=== PATIENT | female | born 1960 | race Caucasian/White ===

== ENCOUNTER → 2016-09-14 | Outpatient (REF) | payer OTHER | LOC: M SFHCWAGY 08:52 | PROVIDERS: ATTEND Nurse Practitioner Women's Health | DX: Z12.4 Encounter for screening for malignant neoplasm of cervix (principal) ==

== ENCOUNTER → 2016-09-30 | Outpatient (CLI) | payer OTHER ==
--- NOTE | 2016-09-30 15:31 | REPMRS ---
Patient History The patient states she had a clinical breast exam in Patient is postmenopausal. No known family history of cancer. Taking unspecified hormones for 4 years. Digital Woman Screen Mammo: September 30, 2016 - Exam #: [id number] Bilateral CC and MLO view(s) were taken. Technologist: Cori Ibarra, Technologist Prior study comparison: July 27, 2015, digital woman screen mammo performed at [facility]. 2012, bilateral mammogram, performed at [facility]. FINDINGS: There are scattered fibroglandular densities. There has been no change in the appearance of the mammogram from the prior studies. There is a mild amount of scattered fibroglandular density which is fairly symmetric. There is no interval development of dominant mass, architectural distortion, or clustered microcalcification suggestive of malignancy. ASSESSMENT: BI-RADS/ACR category 1 mammogram. Negative. Recommendation Routine screening mammogram in 1 year (for women over age 40). This mammogram was interpreted with the aid of an FDA-approved computer-aided dectection system. Electronically Signed By: Siva Vasquez MD 09/30/16 0520
== END ==
LOC: M WHC 13:38
PROVIDERS: ATTEND Nurse Practitioner Women's Health
DX: Z12.31 Encounter for screening mammogram for malignant neoplasm of breast (principal)

== ENCOUNTER → 2017-10-12 | Outpatient (REF) | payer OTHER | LOC: M SFHCWAGY 14:38 | DX: Z12.4 Encounter for screening for malignant neoplasm of cervix (principal); R87.610 Atypical squamous cells of undetermined significance on cytologic smear of cervix (ASC-US) | CPT/HCPCS: G0123 ==

== ENCOUNTER → 2017-10-12 | Outpatient (CLI) | payer OTHER | LOC: M WHC 12:59 | DX: Z12.31 Encounter for screening mammogram for malignant neoplasm of breast (principal) | CPT/HCPCS: 77067 ==

== ENCOUNTER → 2018-10-12 | Outpatient (CLI) | payer OTHER ==
--- NOTE | 2018-10-12 15:03 | REPMRS ---
Patient History The patient states she had a clinical breast exam in 10/2018. Patient is postmenopausal. No known family history of cancer. Taking estrogen for 1 year. Took unspecified hormones for 4 years. 3D TOMOSYNTHESIS WAS PERFORMED. Digital Woman Screen Mammo: October 12, 2018 - Exam #: [id number] Bilateral CC and MLO view(s) were taken. Technologist: Nayeli Hernandez, Technologist Prior study comparison: October 12, 2017, digital woman screen mammo performed at [facility]. September 30, 2016, digital woman screen mammo performed at [facility]. FINDINGS: The breast tissue is heterogeneously dense. This may lower the sensitivity of mammography. There has been no change in the appearance of the mammogram from the prior studies. There is a moderate amount of residual fibroglandular tissue which is fairly symmetric. There is no interval development of dominant mass, areas of architectural distortion, or clustered microcalcification typical of malignancy. Assessment: BI-RADS/ACR category 1 mammogram. Negative Mammogram. Recommendation Routine screening mammogram in 1 year (for women over age 40). This mammogram was interpreted with the aid of an FDA-approved computer-aided dectection system. Electronically Signed By: Francisco Bolden MD 10/12/18 1030
== END ==
LOC: M WHC 14:18
PROVIDERS: ATTEND Nurse Practitioner Women's Health
DX: Z12.31 Encounter for screening mammogram for malignant neoplasm of breast (principal); Z78.0 Asymptomatic menopausal state; Z79.818 Long term (current) use of other agents affecting estrogen receptors and estrogen levels; Z79.890 Hormone replacement therapy

== ENCOUNTER → 2019-10-15 | Outpatient (CLI) | payer OTHER ==
--- NOTE | 2019-10-15 15:20 | REPMRS ---
Patient History The patient states she had a clinical breast exam in October 2019. No known family history of cancer. Taking estrogen for 1 year. Took unspecified hormones for 4 years. Digital Woman Screen Mammo: October 15, 2019 - Exam #: [id number] Bilateral CC and MLO view(s) were taken. Technologist: Yani Jolly, Technologist Prior study comparison: October 12, 2018, bilateral digital woman screen mammo performed at [facility]. October 12, 2017, digital woman screen mammo performed at [facility]. September 30, 2016, digital woman screen mammo performed at [facility]. FINDINGS: There are scattered fibroglandular densities. The Volpara volumetric breast density category is:B. There is a new grouping of microcalcifications in the upper outer quadrant of the right breast which merit further evaluation. There has been no other change in the appearance of the mammogram from the prior studies. There is a mild amount of scattered fibroglandular density which is fairly symmetric. There is no other interval development of dominant mass, architectural distortion, or grouped microcalcification suggestive of malignancy. 3-D tomosynthesis shows no additional findings. Assessment: BI-RADS/ACR category 0 mammogram, Incomplete: Need additional imaging evaluation and/or prior mammograms for comparison. Recommendation Special view mammogram of the right breast in 1 year. This patient's Lifetime Breast Cancer Risk is estimated at 7.9 %. This mammogram was interpreted with the aid of an FDA-approved computer-aided dectection system. Electronically Signed By: Siva Vasquez MD 10/15/19 5964
== END ==
LOC: M WHC 14:20
PROVIDERS: ATTEND Nurse Practitioner Women's Health
DX: Z12.31 Encounter for screening mammogram for malignant neoplasm of breast (principal)

== ENCOUNTER → 2019-10-15 | Outpatient (REF) | payer OTHER | LOC: M SFHCWAGY 17:42 | PROVIDERS: ATTEND Nurse Practitioner Women's Health | DX: Z12.4 Encounter for screening for malignant neoplasm of cervix (principal) ==

== ENCOUNTER → 2019-10-16 | Outpatient (CLI) | payer OTHER ==
--- NOTE | 2019-10-16 13:44 | REP ---
DIGITAL DIAGNOSTIC UNILATERAL RIGHT BREAST MAMMOGRAPHY WITH CAD: Four views. HISTORY: Screening mammography October 15, 2019 was BIRADS category 0 because of new microcalcifications. Comparison is also made with October 12, 2018 and October 12, 2017 prior mammography. MAMMOGRAPHIC FINDINGS: Magnified focal spot compression CC, true mediolateral, and MLO views are obtained. These confirm the presence of a grouping of polymorphic microcalcifications projecting posteriorly in the upper outer quadrant which is a new finding. There are eight to nine of these microcalcifications in the grouping. No soft tissue density is seen or spiculation. No other mammographic finding. IMPRESSION: BIRADS 4: BI-RADS/ACR category 4 mammogram. Suspicious Abnormality - biopsy should be considered. Suspicious new grouping of microcalcifications far posteriorly in the upper outer quadrant of the right breast. BIRADS category 4 suspicious findings. Stereotactic needle biopsy recommended. This mammogram was interpreted with the aid of an FDA-approved computer-aided detection system. The patient states she had a clinical breast exam in October 2019. The patient letter being requested is M4.
== END ==
LOC: M WHC 11:26
PROVIDERS: ATTEND Nurse Practitioner Women's Health
DX: R92.0 Mammographic microcalcification found on diagnostic imaging of breast (principal)

== ENCOUNTER → 2019-10-31 | Outpatient (CLI) | payer OTHER ==
--- NOTE | 2019-10-31 11:21 | REP ---
FOCUSED LEFT BREAST SONOGRAPHY: HISTORY: Palpable left breast mass 1 to 2-o'clock position, 1 cm from the nipple with hypoechoic area seen on ultrasound. Comparison mammography October 14 and October 16, 2019. FINDINGS: Sonography in the 1 to 2-o'clock position 1 cm from the nipple demonstrates an irregular hypoechoic area measuring 7 x 4 x 5 mm. It is best defined in the ante radial orientation. In the radial orientation there appear to be ductal structures radiating towards the nipple. No acoustic shadowing is seen. Long axis is parallel to the skin. It is rather hypoechoic and irregularly marginated. IMPRESSION: Suspicious 7 mm nodule in the left breast. BIRADS category 4. Sonographically guided needle biopsy recommended.
--- NOTE | 2019-10-31 12:13 | REP ---
DIGITAL DIAGNOSTIC UNILATERAL RIGHT BREAST MAMMOGRAPHY WITH CAD: Two views. HISTORY: Marker clip placement views. The patient is status post stereotactic needle biopsy for microcalcifications. Comparison mammography October 16, 2019. FINDINGS: Craniocaudad and mediolateral views of the right breast demonstrate the needle biopsy marker clip in good position adjacent to the location of the microcalcifications. Most of the microcalcifications have been removed. There are two or three remaining. IMPRESSION: Marker clip in good position.
--- NOTE | 2019-10-31 12:15 | REP ---
SPECIMEN RADIOGRAPHY RIGHT BREAST: HISTORY: Stereotactic needle biopsy right breast. Comparison mammography October 16, 2019. FINDINGS: Specimen radiography demonstrates microcalcifications from the target grouping in three of the removed specimens. IMPRESSION: Specimen radiography shows microcalcifications from the target grouping.
--- NOTE | 2019-10-31 12:44 | REP ---
RIGHT STEREOTACTIC BREAST BIOPSY: This procedure is performed by Viviana Yang [facility], under the personal supervision of Dr. Vasquez. All imaging was reviewed by Dr. Vasquez prior to dictation. The procedure along with its risks, benefits, and complications were discussed with the patient prior to the examination and an informed consent was obtained both verbally and written. Directly prior to the start of the procedure, a formal time-out was completed in the exam room. Using the lateral medial approach, the calcifications were localized using stereotactic mammographic guidance. Local infiltrative anesthesia was achieved using 3 mm of buffered lidocaine. A small skin richar was made and a 10-gauge Mammotome device was passed through the skin and to the area of interest. Pre-fire and post-fire imaging revealed the biopsy device to be on target. Six core biopsy specimens were obtained. These were placed in formalin and will be sent to the lab for further evaluation. Specimen radiographs demonstrate the presence of calcifications to be within the specimen. . A marker clip was placed at the biopsy site. The needle was then pulled back into the pre-fire position and imaging showed the clip to be in good placement. The needle ws removed and homeostasis was achieved. The patient tolerated the procedure well and had no immediate complications. She was discharged home with her post-care instructions.
[2019-10-31 13:58] VITALS: BP 150/90
== END ==
LOC: M WHC 09:52
PROVIDERS: ATTEND Surgery
DX: D05.11 Intraductal carcinoma in situ of right breast (principal)

== ENCOUNTER → 2019-11-13 | Outpatient (CLI) | payer OTHER ==
[~2019-11-13] MED LIST: ALLE12TA31 PO
[2019-11-13 14:09] VITALS: BP 132/82
--- NOTE | 2019-11-13 17:37 | REP ---
POST BIOPSY MAMMOGRAM, LEFT BREAST: Post biopsy mammogram left breast performed in the MLO and CC projections following ultrasound guided biopsy of a 7 mm nodule at the 1- to 2-o'clock position of the left breast. This is in the anterior aspect of the left breast. A metallic clip is seen at that location of the left breast. The nodule is not seen mammographically on the prior mammogram of 10/15/2019.
--- NOTE | 2019-11-13 17:38 | REP ---
ULTRASOUND GUIDANCE FOR LEFT BREAST BIOPSY: Ultrasound guidance was provided for Dr. Marino, who performed ultrasound guided biopsy of a hypoechoic nodule visualized at 1- to 2-o'clock position left breast. The nodule is seen on today's images.
--- NOTE | 2019-11-17 00:44 | ROOPDOC ---
[facility] Report Of Operation Report of Operation DATE OF PROCEDURE: 11/13/19 PREPROCEDURE DIAGNOSES: Left breast mass. POSTPROCEDURE DIAGNOSES: Left breast mass. PROCEDURE: Left breast ultrasound-guided biopsy with clip. SURGEON: Toño Jackson RIPSAWYER: ANESTHESIA: Local anesthetic was used. ESTIMATED BLOOD LOSS: Approximately 1 mL. COMPLICATIONS: No complications. REMARKS: Clip is seen on post biopsy mammogram in expected location DESCRIPTION OF PROCEDURE: Lidocaine 1% LOT [id number] Expiration 10/2022 Sodium Bicarbonate 8.4% LOT 06 313 EV Expiration 11/2020 Hydromark clip LOT [id number] Expiration 05/2022 SHAPE 3 Bx device: BARD [id number] x10 cm LOT [id number] Expiration 07/2022 Informed consent was obtained. The most common risk and possible complications including bleeding, hematoma, bruising, infection, injury to surrounding structures were explained to the patient and she expressed understanding. Patient was placed on the bed in the supine position. Appropriate time out was done stating patients name, date of , and the procedure to be performed. The left breast was prepped and draped in the usual fashion. The ultrasound was used to confirm the location of the lesion in the left breast at 1-2:00 1 centimeter from the nipple. Plain Lidocaine 1% and 8.4% sodium bicarbonate 10:1 mix was used to anesthetize the skin, the biopsy site and tissues along the anticipated biopsy tract. Small skin incision was made with blade number 11. BARD Marquee 14G cannula with introducer ([id number]) was inserted through the incision and advanced under the ultrasound guidance to position immediately adjacent to the lesion. Next, the introducer was removed and BARD Marquee 14G biopsy device was places in the cannula. Pre-biopsy imaging, and post-biopsy imaging were captured. Five good core biopsies were taken at various levels of the lesion. Specimen was placed in formaldehyde, labeled with appropriate biopsy site and patients name, and sent to pathology for evaluation. Next, the biopsy device was withdrawn and a clip introducer was inserted into the biopsy site via the cannula. The Hydromark clip was deployed under sonographic guidance. Post-clip placement image was captured. Manual pressure over the biopsy cavity and tract was held after the clip introducer was withdrawn. No bleeding was noted upon removal of the pressure. Post-biopsy mammogram of the left breast was obtained and showed clip in expected position. Postprocedural dressing was placed. Patient tolerated procedure well. Discharge instructions were discussed with the patient and she expressed understanding. TOÑO JACKSON DO Nov 17, 2019 00:44
== END ==
LOC: M WHCPRO 12:37
PROVIDERS: ATTEND Surgery
DX: N60.11 Diffuse cystic mastopathy of right breast (principal)

== ENCOUNTER → 2019-12-07 | Outpatient (CLI) | payer OTHER ==
[~2019-12-07] MED LIST changes: +LEVOTAB10 PO; +ULTR50TA8 PO
== END ==
LOC: M LABSMTC 08:03
PROVIDERS: ATTEND Anesthesiology
DX: Z11.59 Encounter for screening for other viral diseases (principal); Z03.89 Encounter for observation for other suspected diseases and conditions ruled out
CPT/HCPCS: C9803; U0003

== ENCOUNTER 2019-12-10 06:23 | Day surgery (SDC) | payer OTHER ==
[~2019-12-10] VITALS: Ht 165.1 cm; Wt 58.5 kg
[~2019-12-10 06:23] MED LIST changes: -ULTR50TA8 PO
[2019-12-10] MEDS ORDERED: LIDOCAINE 1% SDV 30ML VIAL As Ordered ONE (06:50)
[2019-12-10] MEDS ORDERED: BUPIVACAINE HCL 0.25% 30ML VIAL As Ordered ONE (06:50)
[2019-12-10] MEDS ORDERED: METHYLENE BLUE 0.5% (5MG/ML) 10 ML AMP (PROVAYBLUE) As Ordered ONE (06:50)
[2019-12-10] MEDS ORDERED: HEPARIN SOD (PORCINE) 5000UNITS/ML 1ML VIAL/SYRINGE SQ ONE (07:00)
[2019-12-10] MEDS ORDERED: NS 1,000 ML IV ONE (07:00)
[2019-12-10] MEDS ORDERED: ceFAZolin SOD 2 GM in IV 1 EA IV ONE (07:00)
[2019-12-10] MEDS ORDERED: ROCURONIUM BROMIDE 50 MG/5 ML VIAL As Ordered ONE (07:21)
[2019-12-10] MEDS ORDERED: dexameTHASONE 4 MG/ML 1ML VIAL (J1100 PER 1MG) As Ordered ONE (07:21)
[2019-12-10] MEDS ORDERED: LIDOCAINE 2% 100MG/5ML SDV (FOR ANES.) As Ordered ONE (07:21)
[2019-12-10] MEDS ORDERED: MIDAZOLAM INJ 2MG/2ML VIAL (J2250 PER 1MG) As Ordered ONE (07:22)
[2019-12-10] MEDS ORDERED: fentaNYL 250 MCG/5 ML INJECTION (J3010) As Ordered ONE (07:22)
[2019-12-10] MEDS ORDERED: LACRILUBE (AKWA TEARS) OPHTH OINT 3.5 GM As Ordered ONE (07:51)
[2019-12-10] MEDS ORDERED: ONDANSETRON 4MG/2ML VIAL As Ordered ONE (08:00)
[2019-12-10] MEDS ORDERED: ACETAMINOPHEN 1000MG 100ML IV BTL (OFIRMEV) (J0131 PER 10MG) As Ordered ONE (08:19)
[2019-12-10] MEDS ORDERED: KETOROLAC 60MG 2ML VIAL As Ordered ONE (08:19)
[2019-12-10] MEDS ORDERED: PHENYLephrine HCL 500 MCG/5 ML (100MCG/ML) SYRINGE (J2370) As Ordered ONE (08:23)
[2019-12-10] MEDS ORDERED: ULTR50TA8 PO (10:23)
[2019-12-10] MEDS ORDERED: MEPERIDINE INJ 25 MG/ML VIAL (J2175) IV PRN (10:30)
[2019-12-10] MEDS ORDERED: LR 1,000 ML IV SCH (10:30)
[2019-12-10] MEDS ORDERED: METOCLOPRAMIDE INJ 10MG/2ML VIAL (J2765 PER 1) IV PRN (10:30)
[2019-12-10] MEDS ORDERED: fentaNYL 100 MCG/2 ML INJECTION (J3010) IV PRN (10:30)
[2019-12-10] MEDS ORDERED: ONDANSETRON 4MG/2ML VIAL IV PRN (10:30)
[2019-12-10] MEDS ORDERED: PERCOCET 5MG/325MG TAB PO PRN (10:30)
[2019-12-10 11:56] VITALS: BP 166/85
--- NOTE | 2019-12-10 13:43 | REP ---
RIGHT BREAST ULTRASOUND: Ultrasound guidance. HISTORY: Right breast cancer. FINDINGS: Sonographic guidance is provided to Dr. Marino who performed ultrasound-guided needle localization procedure. Electronically Signed by Walt Vasquez MD 12/10/2019 04:00 P
--- NOTE | 2019-12-10 17:21 | ROOPDOC ---
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 COMPLICATIONS: none REMARKS: clip identified in the specimen intraop. Specimen clip location marked with a stitch. DESCRIPTION OF PROCEDURE: INDICATIONS: Ms. Way is a 59-year-old woman who was found to have suspicious right breast calcifications found on screening mammogram. This was evaluated with Stereotactic biopsy of the right breast. 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 Patient did not wish to pursue MRI. She opted for breast conservative surgery. I informed her that since there is no invasive component of her breast cancer, we do not have to do sentinel lymph node biopsy. I also informed her that if invasive cancer is found in the lumpectomy then we will have to re-visit the discussion of sentinel lymph nodes evaluation. She was medically cleared for surgery by her primary care doctor. Risks and possible complications of surgical procedure including bleeding, infection and injury to surrounding structures were explained to the patient and she wished to proceed. Consent was signed. My initials were placed on the op erative site. Subcutaneous injection of 5000 units of heparin was done in Preop. DETAILS: Patient was taken to the operating room and placed on the operating room table. A sign in was called stating patients name, date of and the procedure to be done. Preoperative antibiotics were infused. Smooth induction of general anesthesia was done. Patients hands were extended on arm rests. Care was taken not to over extend the arms. Procedure was started with right breast intraop wire localization. Appropriate time out was done and patients name, date of , and the procedure to be done were confirmed. Right breast was cleaned by me. Intraoperative ultrasound was used to confirm location of the Hydromark clip. Location of the clip was marked on the skin as well. 21 G Kopans Breast Lesion Localization Needle was used to place 25 cm wire next to the clip and the end of the wire was passed a centimeter deep. The images were captured confirming adequate placement of the localizing wire. Senior Net C Developer assisted with the wire placement. Next, patients right breast and axilla were prepped and draped in the usual fashion. Care was taken not to displace the wire. Appropriate time out was done again prior second part of the procedure. Patients name, date of , and the procedure to be done were confirmed. Local anesthetic using 1% lidocaine and 0.25 % Marcaine 50/50 mix was injected at the site of planned periareolar incision. The incision was made with the scalpel. Subcutaneous skin flaps were raised and the guide wire was carefully pulled into the wound. Dissection was carries along the wire until the previously marked on the skin area of target lesion location was encountered. At this point, wider excision of the tissue surrounding the wire was done. The Hydromark clip was identified in the tissue with intraoperative hockey stick ultrasound probe. During dissection a Hydromark gel become visible on the posterolateral aspect of the lumpectomy specimen. The clip was carefully pulled to prevent displacement during further dissection. A black silk stitch was placed at the site of the clip. The end of the wire was identified with palp ation. The lumpectomy specimen was carefully removed from the breast keeping its proper orientation and moved to the back table where margins were marked with the surgical inking kit following the standard colors recommendations. Specimen was then placed on the grid and placed in [employer] Specimen Imaging System. Previously removed clip was placed at the site of Silk stitch. The image revealed the wire laterally in the specimen and a few calcs medially. The previously identified clip was also seen. The specimen was labeled with patients name and right lumpectomy and sent to pathology. Next, five additional margins were taken: deep, inferior, superior, medial, and lateral. Anterior margin was not taken as the DCIS is located at the posterior aspect and anterior margin is adequately included in the lumpectomy specimen. All new margins, defined as margin farthest away from lumpectomy cavity, were marked with black ink. Each margin was sent as a separate specimen with appropriate labeling. Wound was thoroughly irrigated. Adequate hemostasis was assured. Additional local anesthetic was injected into surrounding tissues. Clips were placed to cirssy the cavity. 3x3x7 cm lumpectomy cavity space was approximated with 3-0 Vicryl. The dermis was closed with 3-0 Monocryl and skin was closed with 4-0 Monocryl. Surgical glue was placed over the incision. Patient emerged from the anesthesia without any problems. Fluffs were placed over the operative site and patients chest was wrapped snuggly in the MICHAELA wrap. Sponge and instrument counts were done and were correct. Patient tolerated procedure well and was taken to recovery unit in stable condition. TOÑO JACKSON. Dec 10, 2019 16:55
--- NOTE | 2019-12-11 10:09 | REP ---
SPECIMEN RADIOGRAPHY RIGHT BREAST: Single view. HISTORY: Right breast cancer. FINDINGS: Specimen radiography demonstrates a Kopans type needle localization hook wire adjacent to a needle biopsy marker clip in the specimen. There are one or two microcalcifications adjacent to the marker clip. Electronically Signed by Walt Vasquez MD 12/11/2019 10:55 A
[2019-12-31] MEDS ORDERED: PHILCAP4 PO (13:41)
[2019-12-31] MEDS ORDERED: PROG1CAP8 PO (13:41)
[2019-12-31] MEDS ORDERED: ASPI81TA86 PO (13:41)
[2019-12-31] MEDS ORDERED: WELLTAB40 PO (13:41)
[2020-02-21] MEDS ORDERED: ANAS1TAB2 PO (15:32)
[2020-03-17] MEDS ORDERED: XYZASOL2 PO (15:07)
[2020-03-17] MEDS ORDERED: ANAS1TAB2 PO (15:39)
== END 2019-12-10 12:15 | disposition home or self-care (01) ==
LOC: M SDC 06:23
PROVIDERS: ATTEND Surgery
DX: D05.11 Intraductal carcinoma in situ of right breast (principal)
CPT/HCPCS: 19125; 36415; 76942; 81025; 86850; 86900; 86901; 88305; 88307; J0131; J0690; J1100; J1644; J2250; J2370; J2405; J3010

== ENCOUNTER → 2019-12-31 | Outpatient (CLI) | payer OTHER ==
[~2019-12-31] MED LIST changes: +ANAS1TAB2 PO; +ASPI81TA86 PO; +PHILCAP4 PO; +PROG1CAP8 PO; +ULTR50TA8 PO; +WELLTAB40 PO; +XYZASOL2 PO
== END ==
LOC: M ONCR 08:53
PROVIDERS: ATTEND Radiology Radiation Oncology
DX: D05.11 Intraductal carcinoma in situ of right breast (principal)

== ENCOUNTER → 2020-01-27 | Outpatient (CLI) | payer OTHER | LOC: M WHC 07:50 | PROVIDERS: ATTEND Internal Medicine Medical Oncology | DX: M81.0 Age-related osteoporosis without current pathological fracture (principal); Z85.3 Personal history of malignant neoplasm of breast; M85.851 Other specified disorders of bone density and structure, right thigh; M85.852 Other specified disorders of bone density and structure, left thigh ==

== ENCOUNTER → 2020-10-15 | Outpatient (CLI) | payer OTHER ==
--- NOTE | 2020-10-15 13:18 | REPMRS ---
Patient History The patient states she had a clinical breast exam in Feb 2020. Patient is postmenopausal and has history of cancer in the right breast at age 59. No known family history of cancer. Benign radio exam breast specimen of the right breast, December 10, 2019. Benign US guided breast biopsy. of the left breast, November 13, 2019. Malignant stereotatic loc for ea lesion. of the right breast, October 31, 2019. Malignant radio exam breast specimen. of the right breast, October 31, 2019. Took estrogen for 1 year. Taking Anastrozole for 8 months. Took unspecified hormones for 4 years. Patient states no breast complaints. Patient has signed the MRS history sheet. Digital Woman Screen Mammo: October 15, 2020 - Exam #: [id number] Bilateral MLO and CC view(s) were taken. XCCL view(s) were taken of the right breast. Technologist: Laina Islas, Technologist Prior study comparison: November 13, 2019, left breast diagnostic unilateral mammo performed at [facility]. October 16, 2019, bilateral diagnostic unilateral mammo performed at [facility]. FINDINGS: There are scattered fibroglandular densities. Screening. This patient?s lifetime risk for the development of invasive breast cancer can?t be calculated due to her age (less than 20 or greater than 85 years) or a prior history of in situ or invasive breast cancer. Digital screening (2D) mammography was performed bilaterally. Additionally, breast tomosynthesis (3D mammography) was performed bilaterally in the CC and MLO projections. Today's exam was compared to the prior exams(s). By history, the patient has no complaints of a palpable breast abnormality or other significant breast complaints. The patient is status post lumpectomy due to breast carcinoma. The breasts are unchanged in size and shape. There are no oneil-areas of internal architectural distortion. There are no oneil-soft tissue densities or areas of spiculation.There are no suspicious calcifications IMPRESSION: BI-RADS Category 2- Benign Findings(s). There is no evidence of malignant alteration of the breasts. Routine bilateral screening mammogram recommended at its regularly scheduled annual interval. This mammogram was read with the assistance of Etopus,an FDA approved computer aided detection system for mammography. The Volpara volumetric breast density category is B, there are scattered areas of fibroglandular density. Negative x-ray reports should not delay surgical consultation if a dominant or clinically suspicious mass is present. Not all breast cancers can be identified by mammography. Therefore, we recommend that you continue to perform regular breast self-examination and physical examination and then promptly contact your physician of any concerns or changes. Adenosis and dense breasts may obscure an underlying neoplasm. Assessment: BI-RADS/ACR category 2 mammogram. Benign Findings. Recommendation Routine screening mammogram of both breasts in 1 year. Electronically Signed By: Reid Lisa DO 10/15/20 2065
== END ==
LOC: M WHC 10:42
PROVIDERS: ATTEND Internal Medicine Medical Oncology
DX: Z12.31 Encounter for screening mammogram for malignant neoplasm of breast (principal); Z78.0 Asymptomatic menopausal state; Z85.3 Personal history of malignant neoplasm of breast; Z86.010 Personal history of colon polyps; Z92.23 Personal history of estrogen therapy; Z92.29 Personal history of other drug therapy

== ENCOUNTER → 2020-11-19 | Outpatient (REF) | payer OTHER | LOC: M SFHCWAGY 18:47 | PROVIDERS: ATTEND Nurse Practitioner Women's Health | DX: Z12.4 Encounter for screening for malignant neoplasm of cervix (principal) ==

== ENCOUNTER → 2020-12-21 | Outpatient (CLI) | payer OTHER ==
--- NOTE | 2020-12-21 12:48 | REP ---
INDICATION: Follow-up COMPARISON: The prior examination of 10/31/2019 which is the diagnostic left breast ultrasound obtained at the 1/2 o'clock position was reviewed. TECHNIQUE: Left breast ultrasound at the 2 o'clock position labeled previous biopsy site was obtained. FINDINGS: An echogenic focus is seen in the left breast at the 2 o'clock position consistent with a post biopsy clip placed during an ultrasound-guided biopsy that was performed by Dr. Marino on 11/13/2019. There are no suspicious masses identified. IMPRESSION: ACR category 2 benign left breast ultrasound as described above. <Electronically signed by Reid Lisa > 12/21/20 0616
== END ==
LOC: M WHC 09:22
PROVIDERS: ATTEND Surgery
DX: N63.20 Unspecified lump in the left breast, unspecified quadrant (principal); Z98.890 Other specified postprocedural states

== ENCOUNTER → 2021-01-12 | Outpatient (CLI) | payer OTHER | LOC: M WHC 09:19 | PROVIDERS: ATTEND Surgery | DX: N63.11 Unspecified lump in the right breast, upper outer quadrant (principal) | CPT/HCPCS: 76642; 77065; G0279 ==

== ENCOUNTER → 2021-01-18 | Outpatient (CLI) | payer OTHER ==
[2021-01-18 09:42] VITALS: BP 158/94
--- NOTE | 2021-01-18 21:44 | ROOPDOC ---
[facility] Report Of Operation Report of Operation DATE OF PROCEDURE: 01/18/21 DIAGNOSIS: right breast suspicious palpable lesion lesion PROCEDURE: ultrasound guided biopsy of the right breast suspicious palpable lesion with clip placement SURGEON: Toño Jackson BLOOD LOSS: minimal COMPLICATIONS: none Lidocaine 1% LOT [id number] Expiration 07/2024 Sodium Bicarbonate 8.4% LOT [id number] Expiration 07/2021 Hydromark clip LOT [id number] Expiration 05/2023 SHAPE: 3 Bx device: BARD [id number] x10 cm LOT [id number] Expiration 07/2023 Informed consent was obtained. The most common risk and possible complications including bleeding, hematoma, bruising, infection, injury to surrounding structures were explained to the patient and the patient expressed understanding. Patient was placed on the bed in the supine position. Appropriate time out was done stating patients name, date of , and the procedure to be performed. Patient confirmed location of the palpable mass in right breast at 11:00 4.5 CFN. This was marked on the skin. The right breast was prepped and draped in the usual fashion. The ultrasound was used to confirm the location of the lesion in the right breast at 11:00 4.5 centimeters from the nipple. The sonographic target corresponded with the location of palpable mass. Plain Lidocaine 1% and 8.4% sodium bicarbonate 10:1 mix was used to anesthetize the skin, the biopsy site and tissues along the anticipated biopsy tract. Small skin incision was made with blade number 11. BARD Marquee 14G cannula with introducer ([id number]) was inserted through the incision and advanced under the ultrasound guidance to position immediately adjacent to the lesion. Next, the introducer was removed and BARD Marquee 14G biopsy device was places in the cannula. Pre-biopsy imaging, and post-biopsy imaging were captured. Five good core biopsies were taken at various levels of the lesion. Palpation was used to assist with the biopsy as well. Specimen was placed in formaldehyde, labeled w ith appropriate biopsy site and patients name, and sent to pathology for evaluation. Next, the biopsy device was withdrawn and a clip introducer was inserted into the biopsy site via the cannula. SHAPE 3 Hydromark clip was deployed under sonographic guidance. Post-clip placement image was captured. Manual pressure over the biopsy cavity and tract was held after the clip introdu cer was withdrawn. No bleeding was noted upon removal of the pressure. Post-biopsy mammogram of the right breast was obtained and showed clip in expected position. Postprocedural dressing was placed. Patient tolerated procedure well. Discharge instructions were discussed with the patient and the patient expressed understanding. TOÑO JACKSON DO Jan 18, 2021 21:44
== END ==
LOC: M WHCPRO 06:39
PROVIDERS: ATTEND Surgery
DX: D24.1 Benign neoplasm of right breast (principal)
CPT/HCPCS: 19083; 77065; 88305; G0279

== ENCOUNTER → 2021-06-14 | Outpatient (CLI) | payer OTHER ==
--- NOTE | 2021-06-14 12:06 | REP ---
INDICATION: RIGHT 6 MON POST BN BX ASSESS STABILITY. COMPARISON: 01/12/2021 as well as other prior exams. TECHNIQUE: MLO and CC views right breast with tomosynthesis. FINDINGS: There is moderate fibroglandular tissue present. There is a biopsy clip in the upper-outer quadrant of the right breast at the site of a previously seen oneil density which was biopsied with ultrasound guidance 01/18/2021. The previous noted ill-defined density is less prominent than on the prior study. There is no new mass or clustered microcalcifications. IMPRESSION: BIRADS/ACR category 2, benign. The previously noted ill-defined density in the upper-outer quadrant of the right breast appears less prominent than on the prior study, a biopsy clip is noted at that location status post benign ultrasound-guided biopsy. No new mass or clustered microcalcifications. This mammogram was interpreted with the aid of an FDA-approved computer-aided detection system. The patient letter being requested is M 1. RECOMMENDATION: Repeat screening mammography recommended October 2021. <Electronically signed by Francisco Bolden > 06/14/21 1816
== END ==
LOC: M WHC 11:02
PROVIDERS: ATTEND Surgery
DX: R92.8 Other abnormal and inconclusive findings on diagnostic imaging of breast (principal); Z97.8 Presence of other specified devices
CPT/HCPCS: 77065; G0279

== ENCOUNTER → 2021-12-10 | Outpatient (CLI) | payer OTHER, SELFPAY | LOC: M WHC 10:35 | PROVIDERS: ATTEND Surgery | DX: D05.11 Intraductal carcinoma in situ of right breast (principal) | CPT/HCPCS: 77066; G0279 ==

== ENCOUNTER → 2022-03-14 | Outpatient (CLI) | payer OTHER | LOC: M WHC 10:37 | PROVIDERS: ATTEND Internal Medicine Medical Oncology | DX: M85.89 Other specified disorders of bone density and structure, multiple sites (principal); C50.911 Malignant neoplasm of unspecified site of right female breast ==

== ENCOUNTER → 2022-11-04 | Outpatient (REF) | payer OTHER ==
[~2022-11-04] MED LIST changes: -PHILCAP4 PO; +PHILLIPS COLON1 CAP PO
== END ==
LOC: M PLALAB 11:25
PROVIDERS: ATTEND Nurse Practitioner Family
DX: Z12.4 Encounter for screening for malignant neoplasm of cervix (principal); N95.2 Postmenopausal atrophic vaginitis
CPT/HCPCS: 87624; G0123

== ENCOUNTER → 2022-12-05 | Outpatient (CLI) | payer OTHER | LOC: M WHC 12:29 | PROVIDERS: ATTEND Nurse Practitioner Women's Health | DX: D05.11 Intraductal carcinoma in situ of right breast (principal) | CPT/HCPCS: 77066; G0279 ==

== ENCOUNTER → 2023-12-04 | Outpatient (CLI) | payer OTHER | LOC: M WHC 13:07 | PROVIDERS: ATTEND Nurse Practitioner Women's Health | DX: Z85.3 Personal history of malignant neoplasm of breast (principal); R92.321 Mammographic fibroglandular density, right breast | CPT/HCPCS: 77066; G0279 ==